=== PATIENT | male | born 1935 | race Caucasian/White ===

== ENCOUNTER 2022-08-09 22:36 | Emergency (ER) | payer OTHER ==
[~2022-08-09] VITALS: Ht 182.9 cm; Wt 73.9 kg
[2022-08-09 22:59] VITALS: BP 139/74
--- NOTE | 2022-08-10 00:43 | NUR ---
PT TO BED 1
[2022-08-10 01:00] VITALS: BP 139/74
--- NOTE | 2022-08-10 01:00 | NUR ---
BIB self for intermittent nose bleed x 2 days. was previously in [facility] yesterday. pt on blood thinners. pmhx pacemaker, knee replacement surgery. denies any allergies.
[2022-08-10 01:48] LABS: PROTHROMBIN TIME 29.1 secs (10.8-13.4)
--- NOTE | 2022-08-10 02:00 | NUR ---
at the patient bedside
--- NOTE | 2022-08-10 02:28 | NUR ---
Patient discharged. Written and verbal after care instructions given and explained. Patient verbalized understanding. Ambulatory with steady gait. ID band removed. All questions addressed prior to discharge. Advised to follow up with PMD.
== END 2022-08-10 02:51 | disposition home or self-care (01) ==
LOC: MED 22:36
DX: R04.0 Epistaxis (principal); I48.91 Unspecified atrial fibrillation; Z95.0 Presence of cardiac pacemaker; Z96.659 Presence of unspecified artificial knee joint
CPT/HCPCS: 36415; 85610; 99283